=== PATIENT | male | born 1965 | race Caucasian/White ===

== ENCOUNTER 2018-05-22 01:34 | Observation (INO) | payer OTHER ==
[2018-05-22 02:20] LABS: #Basophils 0.1 thou/uL (0.0-0.2); #Eosinphils 0.2 thou/uL (0.0-0.7); #Lymphocytes 1.5 thou/uL (1.20-3.40); #Monocytes 0.7 thou/uL (0.11-0.59); #Neutrophils 9.7 thou/uL (1.40-6.50); %Basophils 0.6 % (0.0-1.0); %Eosinophils 1.6 % (0.0-10.0); %Lymphocytes 12.6 % (21.0-51.0); %Monocytes 5.4 % (0.0-10.0); %Neutrophils 79.8 % (42.0-75.0); Hemoglobin 16.9 g/dL (14.0-18.0); Mean Corpuscular Hemoglobin 33.6 pg (27.0-31.0); Mean Corpuscular Volume 96.1 fL (78.0-98.0); Mean Platelet Volume 8.3 fL (7.4-10.4); Platelet Count 195 thou/uL (130-400); Red Blood Cell (RBC) Count 5.03 mill/uL (4.70-6.10); White Blood Cell (WBC) Count 12.2 thou/uL (4.8-10.8)
[2018-05-22 02:39] LABS: ALT (SGPT) 23 U/L (8-55); AST (SGOT) 14 U/L (5-34); Albumin 4.4 g/dL (3.5-5.0); Alkaline Phosphatase 87 U/L (40-150); Anion Gap 12 mmol/L (10-20); BUN (Urea Nitrogen) 15 mg/dL (8.4-25.7); Bilirubin, Total 0.6 mg/dL (0.2-1.2); Calc. Creatinine Clearance 0 mL/min (70-130); Calcium 9.4 mg/dL (7.8-10.44); Carbon Dioxide 27 mmol/L (22-29); Chloride 104 mmol/L (98-107); Estimated GFR-MDRD 75; Globulin 2.8 g/dL (2.4-3.5); Glucose 150 mg/dL (70-105); Protein, Total 7.2 g/dL (6.0-8.3); Sodium 139 mmol/L (136-145)
[2018-05-22] MEDS ORDERED: Ondansetron PF 4 MG/2 ML Vial ONE ×3 (02:42→12:43)
[2018-05-22] MEDS ORDERED: Morphine 4 MG/ML VIAL ONE ×2 (02:42→04:09)
[2018-05-22 04:31] LABS: Bilirubin Negative (Negative); Blood, Urine Negative (Negative); Clarity CLEAR (Clear); Glucose, Urine (Dipstick) Negative (Negative); Leukocyte Negative (Negative); Nitrite Negative (Negative); Protein, Urine (Dipstick) Negative (Neg-Trace); Specific Gravity, Urine 1.038 (1.002-1.036); pH, Urine 6.5 (5.0-9.0)
[2018-05-22] MEDS ORDERED: Levofloxacin 500 mg/D5W 100 ml Premix Bag ONE (06:58)
[2018-05-22] MEDS ORDERED: Ketorolac Tromethamine 30 MG/ML VIAL ONE (06:58)
--- NOTE | 2018-05-22 07:24 | HP ---
HISTORY OF PRESENT ILLNESS: Jose Ronquillo is a 53-year-old male patient with past episodes of epigastric upper abdominal bloating, belching, indigestion, now presents with acute pain and seen in the emergency room and CT scan obtained, revealed changes consistent with cholecystitis. He has gallstones. Bile duct is not dilated. White count is 12, hemoglobin 16. Liver function tests are normal. ALLERGIES: NONE. SOCIAL HISTORY: Tobacco 1/2 to 1 pack per day. Alcohol, socially rarely. MEDICATIONS: None routinely. PAST SURGICAL HISTORY: Knee replacement. PAST MEDICAL HISTORY: Noncontributory. PHYSICAL EXAMINATION: VITAL SIGNS: Blood pressure 130/70, respiratory rate 18, heart rate 74. HEAD, EARS, EYES, NOSE, AND THROAT: Unremarkable. Sclerae nonicteric. NEUROLOGICAL: Intact. No deficit. SKIN: Nonjaundiced. LUNGS: Clear to auscultation. CARDIAC: Regular rate and rhythm without murmur or gallop. ABDOMEN: Soft, tenderness in right upper quadrant. EXTREMITIES: Unremarkable. ASSESSMENT AND PLAN: Acute cholecystitis with cholelithiasis. We recommend laparoscopic video cholecystectomy. Risks of infection, bleeding, visceral and biliary injury discussed. He consents. Questions answered. Job ID: [id number]
--- NOTE | 2018-05-22 08:54 | CT ---
PRELIMINARY REPORT/[facility]/EMERGENTY AFTER-HOURS PROCEDURE CT Abdomen and Pelvis With Contrast EXAM DATE/TIME: 05/22/2018 3:15 AM CLINICAL HISTORY: 53 years old, male; Pain; Abdominal pain; Generalized; Patient HX: Patient reports diverticulitis fla re up. States feels the same as his last one. Reports pain ongoing since 2199. Patient obviously unco mfortable. TECHNIQUE: Axial computed tomography images of the abdomen and pelvis with intravenous contrast. Coronal reforma tted images were created and reviewed. COMPARISON: No relevant prior studies available. FINDINGS: Lower thorax: There are multiple indeterminate pulmonary nodules measuring up to 4 mm in a right midd le lobe, potentially normal intrapulmonary lymph nodes associated with the minor fissure. ABDOMEN: Liver: Normal. No mass. Gallbladder and bile ducts: Mild pericholecystic inflammation of the moderately distended gallbladder , consistent with acute cholecystitis. No visible cholelithiasis. No biliary ductal dilatation. Pancreas: Normal. No ductal dilation. Spleen: Normal. No splenomegaly. Adrenals: Normal. No mass. Kidneys and ureters: Normal. No hydronephrosis. Stomach and bowel: Colonic diverticulosis. No diverticulitis. No bowel wall thickening or intestinal obstruction. Appendix: Normal appendix. PELVIS: Bladder: Unremarkable as visualized. Reproductive: Unremarkable as visualized. ABDOMEN and PELVIS: Intraperitoneal space: Normal. No free air. No significant fluid collection. Bones/joints: No acute fracture. No dislocation. Soft tissues: Unremarkable. Vasculature: Normal. No abdominal aortic aneurysm. Lymph nodes: Normal. No enlarged lymph nodes. IMPRESSION: Acute cholecystitis. Thank you for allowing us to participate in the care of your patient. Dictated and Authenticated by: Larry Matute MD 05/22/2018 5:37 AM Central Time ([place] & [place]) FINAL REPORT EMERGENCY AFTER HOURS STUDY CT ABDOMEN WITH CONTRAST CT PELVIS WITH CONTRAST: DATE: 05-22-18 TIME: 3:16 a.m. HISTORY: 53-year-old male with abdominal pain. Concern for colonic diverticulitis. COMPARISON: None TECHNIQUE: IV injection of iodinated contrast media: 100 ml Isovue 370 Oral contrast media: Not administered FINDINGS: The gallbladder is distended, but there is no pericholecystic fat stranding to indicate edema or flui d. A large number of diverticula throughout the descending and sigmoid colon without strong evidence of diverticulitis. The descending and sigmoid colon are collapsed. Mural low attenuation throughout the descending colon and proximal sigmoid colon questionable for colitis. Normal appendix. Mild to modera te atherosclerotic calcification of abdominal aorta without aneurysm. No abnormality of the urinary b ladder, bilateral kidneys, adrenals, pancreas, liver, or spleen. No small bowel dilation. No pneumope ritoneum or ascites. No consolidation or pleural effusion at lung bases. IMPRESSION: 1. Diverticulosis involving descending and sigmoid colon. 2. No compelling evidence for diverticulitis. 3. Questionable distal colitis. 4. Distended gallbladder without compelling evidence for acute colicystitis. Recommend right upper qu adrant abdominal ultrasound for further evaluation. Disagreement with preliminary report by CHRISTA. Code QD. PALOMA [place] POS: TALIB
[2018-05-22] MEDS ORDERED: Sodium Chloride 0.9% 1,000 ML IV SCH (09:15)
[2018-05-22] MEDS ORDERED: Morphine 4 MG/ML VIAL SLOW IVP PRN (09:18)
[2018-05-22] MEDS ORDERED: Bupivacaine HCl 0.5%/Epinephrine 1:200,000/PF 30 ml Vial ONE (10:13)
[2018-05-22] MEDS ORDERED: Ondansetron ODT 4 MG TAB SL PRN (10:15)
[2018-05-22] MEDS ORDERED: Ondansetron PF 4 MG/2 ML Vial IVP PRN (10:15)
[2018-05-22] MEDS ORDERED: Famotidine/PF 20 mg/2ml Vial ONE (10:19)
[2018-05-22] MEDS ORDERED: Fentanyl 100 MCG/2 ML VIAL ONE ×2 (10:19→13:53)
[2018-05-22] MEDS ORDERED: ISOVUE-370 76%-LOCM 1 ML ONE (12:18)
[2018-05-22] MEDS ORDERED: PROPOFOL 200 MG/20 ML VIAL ONE (12:43)
[2018-05-22] MEDS ORDERED: Lidocaine 1% PF 5 ML VIAL ONE (12:43)
[2018-05-22] MEDS ORDERED: Glycopyrrolate 0.2 MG/ML 5 ML SYRINGE ONE (12:43)
[2018-05-22 14:51] VITALS: BMI 34.1
[2018-05-22] MEDS ORDERED: Acetaminophen 500 MG TAB PO PRN (15:36)
[2018-05-22] MEDS ORDERED: Ondansetron ODT 8 MG TAB PO PRN (15:36)
[2018-05-22] MEDS ORDERED: Ondansetron ODT 8 MG TAB SL PRN (15:36)
[2018-05-22] MEDS ORDERED: Ondansetron ORAL SOLN. 4 MG/5 ML UDCUP PO PRN ×2 (15:36)
[2018-05-22] MEDS ORDERED: Ibuprofen 600 MG TAB PO PRN (15:36)
[2018-05-22] MEDS ORDERED: traMADol HCl 50 MG TAB PO PRN ×2 (15:36)
[2018-05-22] MEDS ORDERED: Ondansetron ODT 4 MG TAB PO PRN (15:36)
[2018-05-22 17:00] VITALS: BP 132/74; TEMP 97.3
--- NOTE | 2018-05-22 22:24 | OP ---
DATE OF PROCEDURE: 05/22/2018 PREOPERATIVE DIAGNOSES: Acute cholecystitis, cholelithiasis, and chronic cholecystitis. POSTOPERATIVE DIAGNOSES: Acute cholecystitis, cholelithiasis, and chronic cholecystitis. PROCEDURE PERFORMED: Laparoscopic video cholecystectomy. ANESTHESIA: General, local with 0.5% Marcaine with epinephrine 30 mL of total volume used. DESCRIPTION OF PROCEDURE: The patient was taken to the operating room, where under general anesthesia, the abdomen was prepared with ChloraPrep and draped in routine fashion. Local anesthetic was infiltrated into the skin and subcutaneous tissue about each port site. Infraumbilical incision was made. Pneumoperitoneum to 15 mmHg obtained with a Veress needle, replaced with a 5 port, and the video laparoscope was inserted. Right subxiphoid incision was made and 11 port placed, right subcostal incision was made, midclavicular and anterior axillary lines and 5 mm port was placed. Liver was slightly engorged and fatty. Fundus of the gallbladder was grasped at the cephalad. Gallbladder wall was thickened, edematous. Infundibulum was grasped laterally. There was stone obstruction in the gallbladder outlet. Cystic artery and duct were dissected free. Critical view obtained. Cystic artery and duct double clipped proximally, divided and gallbladder dissected free from the liver bed obtaining good hemostasis prior to division of the final peritoneal attachments. Gallbladder and contents were removed and submitted to Pathology. Good hemostasis obtained with the cautery. Multiple stones and fragments were removed. All instruments removed and all skin incisions were closed with interrupted subdermal 4-0 Monocryl after closure of the xiphoid fascia with [id number] of 0 Vicryl. The patient tolerated the procedure well. Job ID: [id number]
--- NOTE | 2018-05-23 04:21 | DIS ---
DATE OF ADMISSION: 05/22/2018 DATE OF DISCHARGE: 05/22/2018 DISCHARGE DIAGNOSES: Acute chronic cholecystitis and cholelithiasis. POSTOPERATIVE DIAGNOSES: Acute chronic cholecystitis and cholelithiasis. PROCEDURE PERFORMED: Laparoscopic video cholecystectomy. CT scan of the abdomen and pelvis. HISTORY OF PRESENT ILLNESS: A 53-year-old male with biliary symptoms for many months, presents with acute episode of gallbladder outlet obstruction documented by CAT scan, hospitalized, received intravenous fluids and antibiotics, undergone laparoscopic cholecystectomy and discharged home. Postop, he will follow up in my office in 2 to 3 weeks. DIET: As tolerated. ACTIVITY: As tolerated. No lifting restrictions. Job ID: [id number]
== END 2018-05-22 17:26 | disposition home or self-care (01) ==
LOC: ERS 01:34 → 3SE 08:02
PROVIDERS: ADMIT Specialist; ATTEND Specialist
PROC: 0FT44ZZ Resection of Gallbladder, Percutaneous Endoscopic Approach (ICD-10-PCS; principal; 2018-05-22)
DX: K80.12 Calculus of gallbladder with acute and chronic cholecystitis without obstruction (principal); F17.210 Nicotine dependence, cigarettes, uncomplicated
CPT/HCPCS: 36415; 74177; 80053; 81003; 83605; 83690; 85025; 88304; 96361; 96372; 96374; 96375; 96376; G0378; J0131; J0670; J1885; J1956; J2001; J2270; J2405; J2704; J3010; S0028